=== PATIENT | female | born 1965 | race Caucasian/White ===

== ENCOUNTER → 2020-12-13 | Outpatient (CLI) | payer MEDICAID ==
[2020-12-13 15:32] VITALS: BP 130/85; PULSE 87; RESP 18; TEMP 98; BMI 40.9
[2020-12-13 16:40] LABS: HCT 39.9 % (34.0-46.0); HGB 13.4 gm/dL (11.4-16.0); MCH 29.5 pg (25.0-35.0); MCHC 33.6 g/dL (31.0-37.0); MCV 87.8 fL (80.0-100.0); Mean Platelet Volume 6.7; Platelet Count 355 k/uL (150-450); RBC 4.54 m/uL (3.80-5.40); RDW 13.7 % (11.5-15.5); WBC 8.4 k/uL (3.8-10.6)
[2020-12-14 06:51] LABS: Hemoglobin A1C 5.9 % (4.0-6.0)
[2020-12-14 19:32] LABS: African American GFR (CKD) 97.6 (60.0-200.0); Albumin 4.9 g/dL (3.80-4.90); Albumin/Globulin Ratio 2.13 (1.60-3.17); Anion Gap 17.3 mmol/L (4.00-12.00); BUN/Creat Ratio 23.75 Ratio (12.00-20.00); Calcium 10.2 mg/dL (8.7-10.3); Carbon Dioxide 19.7 mmol/L (21.6-31.8); Globulin 2.3 g/dL (1.6-3.3); Non-African American GFR(CKD) 84.2 (60.0-200.0); Potassium 4.5 mmol/L (3.5-5.5); Total Bilirubin 0.5 mg/dL (0.2-1.2); Total Protein 7.2 g/dL (6.2-8.2)
[2020-12-14 19:52] LABS: Folate, Serum 16.8 ng/mL
--- NOTE | 2020-12-28 10:47 | P.HPBAR ---
Bariatric H&P - History & Physicial H&P Date: 12/13/20 History & Physicial: Visit/CC: initial visit Patient initial contact: Initial weight: Initial weight in pounds: Height: 5 ft 7.5 in Initial BMI: Last weight: Current weight: 120.429 kg Current weight in pounds: 265.50 Current BMI: 40.9 [place] body weight (based on NIH guidelines): 62.369 kg Excess body weight loss: The patient is a 55 year-old F who presents for Bariatric Assessment. Patient presents today for presurgical consultation. She is morbidly obese. Her BMI is 41. She is requesting sleeve gastrectomy. Past Medical History Past Medical History: Atrial Fibrillation, Sleep Apnea/CPAP/BIPAP, Thyroid Disorder Additional Past Medical History / Comment(s): pneumonia 12/2017. History of Any Multi-Drug Resistant Organisms: MRSA Year Discovered:: 2018 MDRO Source:: nasal swab Past Surgical History: Ablation, Joint Replacement, Uterine Ablation Additional Past Surgical History / Comment(s): ablation for afib 2014. thyroid removed 11/2019. left hip replacement sx 01/2017. right hip replacement sx 07/2017. right hip replacement sx 12/2018. Past Anesthesia/Blood Transfusion Reactions: No Reported Reaction Past Psychological History: Depression Smoking Status: Never smoker Past Alcohol Use History: None Reported Past Drug Use History: None Reported Surgical - Exam Vital Signs Temp Pulse Resp BP 98 F 87 18 130/85 12/13/20 15:16 12/13/20 15:16 12/13/20 15:16 12/13/20 15:16 - General well developed, well nourished, no distress - Eyes PERRL - ENT normal pinna - Neck no masses - Respiratory normal expansion - Cardiovascular Rhythm: regular - Abdomen Abdomen: soft, non tender Results - Labs 12/13/20 16:03 12/13/20 16:03 Bariatric Assessment & Plan Plan: Morbid obesity. Patient was scheduled for EGD. She has an excellent understanding of sleeve gastrectomy. The risks and benefits of surgery discussed. Bariatric Checklist Checklist: Plan: Checklist: EGD: 1. Hiatal hernia: 2. H. Pylori: HgbA1c: Vitamin D: Smoking: Primary care physician referral: VICTORIA Day ([place]) Psychiatry clearance: Cardiology clearance: Sleep study: Diet journal: VTE risk score: VTE risk level: Rehab needs at discharge:
== END ==
LOC: BARWHC3 14:49
PROVIDERS: ATTEND Surgery
DX: E66.01 Morbid (severe) obesity due to excess calories (principal); Z68.41 Body mass index [BMI] 40.0-44.9, adult; I48.91 Unspecified atrial fibrillation; F32.9 Major depressive disorder, single episode, unspecified; Z91.040 Latex allergy status; Z91.048 Other nonmedicinal substance allergy status
CPT/HCPCS: 36415; 80053; 82306; 82607; 82746; 83036; 84425; 85027; 93005; 99203

== ENCOUNTER 2021-07-11 06:41 | Inpatient (IN) | payer MEDICAID ==
[~2021-07-11 06:41] MED LIST: DEXAMETHASONE SOD PHOSPHATE 4 MG/ML 1 ML VIAL IV ONE; ENOXAPARIN 40 MG/0.4 ML SYRINGE SQ PRN; MIDAZOLAM 2 MG/2 ML VIAL IV PRN; ONDANSETRON 4 MG/2 ML VIAL IVP ONE; SCOPOLAMINE 1 MG/72 HR PATCH TRANSDERM ONE
[2021-07-11] MEDS ORDERED: HYDROmorphone 0.5 MG/0.5 ML SYRINGE IVP PRN (07:00)
[2021-07-11] MEDS: LACTATED RINGERS 1,000 ML IV SCH (07:05)
[2021-07-11] MEDS ORDERED: LIDOCAINE 1% (10MG/ML) FOR IV START INTRADERMA ONE (07:34)
[2021-07-11] MEDS ORDERED: ROCURONIUM 10 MG/ML (5 ML VIAL) IV ONE (07:54)
[2021-07-11] MEDS ORDERED: diphenhydrAMINE 50 MG/ML 1 ML VIAL ONE (07:54)
[2021-07-11] MEDS ORDERED: ePHEDrine 50 MG/ML 1 ML VIAL ONE (07:54)
[2021-07-11] MEDS ORDERED: HYDROmorphone (PF) 1 MG/ML ONE (07:54)
[2021-07-11] MEDS ORDERED: PROPOFOL 10 MG/ML 20 ML VIAL IV ONE (07:54)
[2021-07-11] MEDS ORDERED: MIDAZOLAM 2 MG/2 ML VIAL ONE (07:54)
[2021-07-11] MEDS ORDERED: fentaNYL (PF) 50 MCG/ML 2 ML AMP ONE (07:54)
[2021-07-11] MEDS ORDERED: GLYCOPYRROLATE 0.2 MG/ML 2 ML VIAL ONE (07:54)
[2021-07-11] MEDS ORDERED: LIDOCAINE 1% INJ 10MG/ML (20 ML MDV) ONE (07:54)
[2021-07-11] MEDS ORDERED: SUCCINYLCHOLINE CHLORIDE VIAL 200 MG/10 ML VIAL IV ONE (07:54)
[2021-07-11] MEDS ORDERED: KETOROLAC 15 MG/ML 1 ML VIAL ONE (07:54)
[2021-07-11] MEDS ORDERED: NEOSTIGMINE 1 MG/ML 10 ML VIAL ONE (07:54)
[2021-07-11] MEDS ORDERED: BUPIVACAIN-EPI 0.25%-1:200,000 30 ML VIAL SQ ONE (08:24)
[2021-07-11] MEDS ORDERED: diphenhydrAMINE 50 MG/ML 1 ML VIAL IVP PRN (09:25)
[2021-07-11] MEDS ORDERED: ONDANSETRON 4 MG/2 ML VIAL IVP PRN (09:25)
[2021-07-11] MEDS ORDERED: HYDROmorphone 1 MG/ML 1 ML SYRINGE IVP PRN (09:25)
[2021-07-11] MEDS ORDERED: NALOXONE 0.4 MG/ML 1 ML VIAL IV PRN (09:25)
--- NOTE | 2021-07-11 09:25 | P.GSHP ---
History of Present Illness H&P Date: 07/11/21 Chief Complaint: Morbid obesity, BMI 37 This is a 56-year-old female who presents today for laparoscopic sleeve gastrectomy. Patient has had lifetime proximal piece. She has several convert is related to morbid obesity. Patient was sent the risks and benefits position. She is aware of the risk of gastric staple line disruption, bleeding and scarring. Past Medical History Past Medical History: Atrial Fibrillation, Osteoarthritis (OA), Sleep Apnea/CPAP/BIPAP, Syncope, Thyroid Disorder Additional Past Medical History / Comment(s): pneumonia 12/2017. , episode of passing out in Jan.-had echo, cardiac testing-all wnl per pt, card. thinks probably vasovagal, uses CPAP History of Any Multi-Drug Resistant Organisms: None Reported Date of last positivie culture/infection: 2017 MDRO Source:: nasal swab Past Surgical History: Cardiac Ablation, Joint Replacement, Uterine Ablation Additional Past Surgical History / Comment(s): ablation for afib 2014. thyroid removed 11/2019. left hip replacement sx 01/2017. right hip replacement sx 07/2017. right hip replacement sx 12/2018. Past Anesthesia/Blood Transfusion Reactions: No Reported Reaction Smoking Status: Never smoker Medications and Allergies Home Medications Medication Instructions Recorded Confirmed Type Cholecalciferol (Vitamin D3) 250 mcg PO DAILY 12/13/20 07/11/21 History [Vitamin D3 (125 MCG = 5,000 IU)] Desvenlafaxine Succinate [Pristiq] 50 mg PO DAILY 12/13/20 07/11/21 History Levothyroxine Sodium [Synthroid] 100 mcg PO DAILY 12/13/20 07/11/21 History Allergies Allergy/AdvReac Type Severity Reaction Status Date / Time adhesive tape Allergy Rash/Hives Verified 07/11/21 07:07 latex Allergy Rash/Hives Verified 07/11/21 07:07 steri strips Allergy Rash/Hives Uncoded 07/11/21 07:07 Surgical - Exam Vital Signs Temp Pulse Resp BP Pulse Ox 98.0 F 93 18 115/74 96 07/11/21 07:09 07/11/21 07:09 07/11/21 07:09 07/11/21 07:09 07/11/21 07:09 - General well developed, well nourished, no distress - Eyes PERRL - ENT normal pinna - Neck no masses - Respiratory normal expansion - Cardiovascular Rhythm: regular - Abdomen Abdomen: soft, non tender Assessment and Plan Assessment: Morbid obesity. We'll perform laparoscopic sleeve gastrectomy.
--- NOTE | 2021-07-11 09:26 | P.OP ---
Date of Procedure: 07/11/21 Preoperative Diagnosis: Morbid obesity, BMI 37 Postoperative Diagnosis: Morbid obesity Procedure(s) Performed: Laparoscopic sleeve gastrectomy Anesthesia: LILIANA Surgeon: Rodrigo Loaiza Estimated Blood Loss (ml): 5 Pathology: other (Stomach) Condition: stable Disposition: PACU Description of Procedure: The patient was placed on the operating room table in the supine position. She received general anesthesia and then was placed in dorsal lithotomy position. Her abdomen was prepped and draped in sterile fashion. The skin incision sites were anesthetized 1% local Xylocaine. And then the skin was incised with an 11 blade in the left lateral position. Using a blade less trocar under direct visualization the peritoneal cavity was entered. The abdomen was insufflated and then a 5 mm laparoscope was placed into the peritoneal cavity. A 5 mm trocar was placed in the right epigastric, and right lateral position. A 15 mm trocar was placed in the supra-umbilical position and another 5 mm trocar was placed in the left lateral position. The left lateral lobe of the liver was retracted. The stomach was visualized. The greater curvature of the stomach was then dissected using the Harmonic scissors. The dissection occurred approximately 5 cm from the pylorus to the level of the left zach. There was no hiatal hernia seen. At this point a 40-Kos[place] bougie dilator was placed the oropharynx and passed into the esophagus and into the stomach by the [employer]. The sleeve gastrectomy was performed by using the powered echelon stapler with a seam guard buttress material. Sequential firings of the stapler were performed. The gastric remnant was then brought out through the 15 mm trocar site. The dilator was withdrawn. And a orogastric tube was replaced into the stomach. The stomach was insufflated with 200 mL of methylene blue normal saline. There was no evidence of extravasation. The abdomen was irrigated there is no bleeding seen. The El-Dwight device was used to close the 15 mm trocar with 0 Vicryl. Skin was closed with interrupted 3-0 Monocryl sutures once the trochars withdrawn. Dermabond dressing was applied. Patient was sent to recovery in stable condition.
[2021-07-11] MEDS: KETOROLAC 15 MG/ML 1 ML VIAL IVP SCH ×3 (16:31→23:52)
[2021-07-11] MEDS: 0.9% NACL WITH KCL 20 MEQ/L 1,000 ML IV SCH ×2 (16:41→23:52)
--- NOTE | 2021-07-11 17:02 | CONS ---
CONSULTATION DATE OF SERVICE: 07/11/2021 REASON FOR CONSULTATION: Advice regarding atrial fibrillation and other medical issues, requested by Dr. Loaiza. HISTORY OF PRESENT ILLNESS: This 56-year-old woman with a past medical history of atrial fibrillation, DJD, and multiple medical problems, was admitted after laparoscopic sleeve gastrectomy by Dr. Loaiza. There is no history of any chest pain, palpitations, headache, loss of consciousness or seizures. PAST MEDICAL HISTORY: Atrial fibrillation, sleep apnea. MEDICATIONS: Home medications are reviewed and include Synthroid 100 mcg p.o. daily. ALLERGIES: ALLERGIES include ADHESIVE TAPE. FAMILY HISTORY: No history of heart disease or strokes in the family. SOCIAL HISTORY: No history of smoking. REVIEW OF SYSTEMS: Fourteen-point review of systems negative except as mentioned earlier. PHYSICAL EXAMINATION: Pulse 83, blood pressure 120/70, respiration 16. CHEST: Clear to auscultation. CARDIOVASCULAR: S1, S2 muffled. ABDOMEN: Soft. Status post surgery. LEGS: No edema. No swelling. NERVOUS SYSTEM: No focal deficit. SKIN: No ulcer, rash, bleeding. NECK: No jugular venous distention. NECK is no jugular venous distention. LAB INVESTIGATIONS: Not available. ASSESSMENT: 1. Status post laparoscopic sleeve gastrectomy. 2. Atrial fibrillation. 3. Degenerative joint disease. 4. History of sleep apnea. RECOMMENDATIONS AND DISCUSSION: In this 56-year-old woman who presented after surgery, at this time I recommend to continue current medications, continue symptomatic treatment. I recommend remote telemetry for the next 24 hours. Otherwise, resume the home medications. Will follow the patient closely with you. Thank you, Dr. Loaiza, for letting us participate in the care of this patient. MMODL / IJN: [id number] /
[2021-07-11] MEDS: HYOSCYAMINE ORAL DROPS 1.875 MG/15 ML BOTTLE PO PRN (19:43)
[2021-07-11] MEDS: ALBUTEROL NEBULIZED 2.5 MG/3 ML INHALATION SCH ×2 (20:12→21:45)
[2021-07-11] MEDS ORDERED: ACETAMINOPHEN IV (For NPO) 1,000 MG in EMPTY BAG 1 BAG IVPB ONE (21:25)
[2021-07-12] MEDS: HYOSCYAMINE ORAL DROPS 1.875 MG/15 ML BOTTLE PO PRN (04:03)
[2021-07-12] MEDS: KETOROLAC 15 MG/ML 1 ML VIAL IVP SCH ×2 (05:17→11:41)
[2021-07-12] MEDS ORDERED: LEVOTHYROXINE 100 MCG TAB PO SCH (06:30)
[2021-07-12] MEDS ORDERED: ENOXAPARIN 40 MG/0.4 ML SYRINGE SQ SCH (07:00)
[2021-07-12] MEDS: LACTATED RINGERS 1,000 ML IV SCH (07:07)
[2021-07-12 07:14] VITALS: RESP 19
[2021-07-12] MEDS: 0.9% NACL WITH KCL 20 MEQ/L 1,000 ML IV SCH (07:31)
[2021-07-12] MEDS ORDERED: 1: THIAMINE 100 MG, FOLIC ACID 1 MG in 0.9% NACL WITH KCL 20 MEQ/L 1,000 ML 2: 0.9% NAC IVPB SCH (08:00)
[2021-07-12] MEDS ORDERED: PANTOPRAZOLE 40 MG/10 ML VIAL IV SCH (09:00)
[2021-07-12] MEDS ORDERED: DESVENLAFAXINE SUCCINATE 50 MG TAB.ER.24H PO SCH (09:00)
[2021-07-12] MEDS ORDERED: MULTIVITAMINS, THERA LIQUID 237 ML BOTTLE PO SCH (09:00)
[2021-07-12 09:11] LABS: Basophils # (A) 0.02 X 10*3/uL (0.00-0.10); Basophils % (A) 0.2 %; Eosinophils # (A) 0.02 X 10*3/uL (0.04-0.35); Eosinophils % (A) 0.2 %; HCT 36.8 % (37.2-46.3); HGB 11.6 g/dL (12.0-15.0); Immature Grans, Automated 0.3 %; Lymphocytes # (A) 1.95 X 10*3/uL (0.90-5.00); Lymphocytes % (A) 19.1 %; MCH 28.3 pg (27.0-32.0); MCHC 31.5 g/dL (32.0-37.0); MCV 89.8 fL (80.0-97.0); Mean Platelet Volume 9.5 fL (9.5-12.2); Monocytes # (A) 0.77 X 10*3/uL (0.20-1.00); Monocytes % (A) 7.5 %; NRBC Per 100 WBC 0 /100 WBCS (0.0-0.0); Neutrophils # (A) 7.41 X 10*3/uL (1.80-7.70); Neutrophils % (A) 72.7 %; Platelet Count 370 X 10*3/uL (140-440); RDW 13.6 % (11.5-14.5)
[2021-07-12] MEDS: ALBUTEROL NEBULIZED 2.5 MG/3 ML INHALATION SCH ×2 (09:17→11:55)
[2021-07-12 09:25] LABS: Magnesium 2.2 mg/dL (1.5-2.4)
[2021-07-12 09:32] LABS: African American GFR (CKD) 112.5 (60.0-200.0); Anion Gap 13.9 mmol/L (10.00-18.00); Blood Urea Nitrogen 10.7 mg/dL (9.0-27.0); Calcium 8.6 mg/dL (8.7-10.3); Carbon Dioxide 20.6 mmol/L (20.0-27.5); Non-African American GFR(CKD) 97.1 (60.0-200.0); Phosphorus 3.1 mg/dL (2.4-5.1); Potassium 4.3 mmol/L (3.5-5.5)
--- NOTE | 2021-07-12 10:38 | FL ---
SINGLE CONTRAST UPPER GI EXAMINATION: CLINICAL HISTORY: 56-year-old female postop bariatric surgery, sleep gastrectomy on 07/11/2021. TECHNIQUE: Single contrast exam performed with 40 ml Isovue-370 contrast. Total fluoroscopy time: 1 minute 14 seconds. Total images: 20. FINDINGS: The patient was hesitant to swallow the oral contrast but did so without difficulty. Esophageal peris talsis and motility are within normal limits. There is prompt passage of contrast across the GE junct ion but then delay in passage beyond the proximal stomach. The patient took only a total of 2 swallow s. A few episodes of mild gastroesophageal reflux is demonstrated. There are postsurgical changes of sleeve gastrectomy. Contrast has instantly makes its way to the distal stomach and into the duodenum. There is no extravasation of contrast to suggest leak. No postsurgical free air identified on either side. Loop recorder device noted. IMPRESSION: Status post sleeve gastrectomy. No evidence for leak. Mild relative obstruction at the sleeve likely from postsurgical edema.
[2021-07-12 12:24] VITALS: BMI 36.6
[2021-07-12 13:28] VITALS: BP 128/74; PULSE 82; TEMP 97.4
--- NOTE | 2021-07-12 15:06 | P.DS ---
Providers Date of admission: 07/11/21 06:41 Expected date of discharge: 07/12/21 Attending physician: Rodrigo Loaiza Consults: 07/11/21 09:25 Consult Physician Routine Consulting Provider: Irasema Aleman Consult Reason/Comments: Medical management Do you want consulting provider notified?: Yes Primary care physician: Physician Nonstaff Hospital Course: Discharge diagnosis 1. Morbid obesity status post laparoscopic sleeve gastrectomy Hospital course This is a 56-year-old female with history of morbid obesity. She is status post appendectomy scopic sleeve gastrectomy. She tolerated surgery well. Her pain is controlled. She is tolerating bariatric clear liquid diet. Her upper GI shows no evidence of leak. Mild relative obstruction at the sleeve likely from postsurgical edema. Patient reports that her pain is controlled. She denies any nausea. She has been up and ambulating. And is afebrile. She is tolerating her liquid diet. She is stable for discharge. Please refer to chart for any further details. Physician Network Liaison note has been reviewed by physician. Signing provider agrees with the documented findings, assessment, and plan of care. Patient Condition at Discharge: Stable Plan - Discharge Summary Discharge Rx Participant: Yes New Discharge Prescriptions: New Omeprazole [PriLOSEC] 40 mg PO DAILY #30 cap Ondansetron Odt [Zofran Odt] 4 mg PO Q8HR PRN #9 tab PRN Reason: Nausea HYDROcodone/APAP 5-325MG [[place] 5-325] 1 tab PO Q6HR PRN 2 Days #5 tab PRN Reason: Pain bisacodyL [Dulcolax] 5 mg PO DAILY PRN #10 tab PRN Reason: Constipation Simethicone 40 mg/0.6 ml Drops [Mylicon Drops] 40 mg PO HS PRN #30 ml PRN Reason: Gas Continue Levothyroxine Sodium [Synthroid] 100 mcg PO DAILY Desvenlafaxine Succinate [Pristiq] 50 mg PO DAILY Discontinued Cholecalciferol (Vitamin D3) [Vitamin D3 (125 MCG = 5,000 IU)] 250 mcg PO DAILY Discharge Medication List Desvenlafaxine Succinate [Pristiq] 50 mg PO DAILY 12/13/20 [History] Levothyroxine Sodium [Synthroid] 100 mcg PO DAILY 12/13/20 [History] HYDROcodone/APAP 5-325MG [[place] 5-325] 1 tab PO Q6HR PRN 2 Days #5 tab 07/12/21 [Rx] Omeprazole [PriLOSEC] 40 mg PO DAILY #30 cap 07/12/21 [Rx] Ondansetron Odt [Zofran Odt] 4 mg PO Q8HR PRN #9 tab 07/12/21 [Rx] Simethicone 40 mg/0.6 ml Drops [Mylicon Drops] 40 mg PO PCHS PRN #30 ml 07/12/21 [Rx] bisacodyL [Dulcolax] 5 mg PO DAILY PRN #10 tab 07/12/21 [Rx] Follow up [facility]ment(s[facility] [facility] [place] 1 Week Activity/Diet/Wound Care/Special Instructions: No driving while taking [place] No lifting over 10 pounds You may shower. No soaking or tub baths for 2 weeks Very light activity until you are reevaluated at your follow up appointment with your surgeon No straws or carbonated beverages Hold on taking all vitamins until seen by surgeon Discharge Disposition: HOME SELF-CARE
--- NOTE | 2021-07-12 16:36 | PN ---
PROGRESS NOTE DATE OF SERVICE: 07/12/2021 This 56-year-old woman who was admitted after laparoscopic sleeve gastrectomy is improving significantly. No chest pain. No palpitations. No fever. PHYSICAL EXAMINATION: Pulse is 82, blood pressure 124/74, respiration 19. CHEST: Clear to auscultation. CARDIOVASCULAR: S1, S2 muffled. ABDOMEN: Soft. Status post surgery. NERVOUS SYSTEM: No focal deficits. LABS: Reviewed. ASSESSMENT: 1. Status post laparoscopic sleeve gastrectomy. 2. Atrial fibrillation. 3. Degenerative joint disease. 4. History of sleep apnea. RECOMMENDATIONS AND DISCUSSION: I recommend to continue current medications, continue with the monitoring, symptomatic treatment. Incentive spirometry. DVT prophylaxis. Continue the home medications upon discharge. Follow with primary physician in one week. Rest of the recommendations and DVT prophylaxis per Surgery. MMODL / IJN: [id number] /
[2021-07-13] MEDS ORDERED: bisacodyL 5 MG TABLET.DR PO PRN (08:00)
== END 2021-07-12 16:11 | disposition home or self-care (01) | DRG 621 ==
LOC: 2ORMAIN 06:41 → 4SSUR 15:44
PROVIDERS: ADMIT Surgery; ATTEND Surgery
PROC: 0DB64Z3 Excision of Stomach, Percutaneous Endoscopic Approach, Vertical (ICD-10-PCS; principal; 2021-07-11 07:40)
DX: E66.01 Morbid (severe) obesity due to excess calories (principal); I48.91 Unspecified atrial fibrillation; G47.30 Sleep apnea, unspecified; M19.90 Unspecified osteoarthritis, unspecified site; Z68.37 Body mass index [BMI] 37.0-37.9, adult; Z79.890 Hormone replacement therapy; Z79.899 Other long term (current) drug therapy; Z90.49 Acquired absence of other specified parts of digestive tract; Z96.643 Presence of artificial hip joint, bilateral; Z91.048 Other nonmedicinal substance allergy status; Z91.040 Latex allergy status; Z87.01 Personal history of pneumonia (recurrent); Z86.79 Personal history of other diseases of the circulatory system
CPT/HCPCS: 74240; 80051; 81025; 82310; 82565; 83735; 84100; 84520; 85025; 88307; 94640

== ENCOUNTER → 2021-07-19 | Outpatient (CLI) | payer MEDICAID ==
[2021-07-19 13:27] VITALS: BMI 35.6
[2021-07-19 14:26] VITALS: BP 128/80; PULSE 78
== END ==
LOC: BARWHC3 11:13
PROVIDERS: ATTEND Surgery
DX: E66.01 Morbid (severe) obesity due to excess calories (principal); Z68.35 Body mass index [BMI] 35.0-35.9, adult; Z98.84 Bariatric surgery status
CPT/HCPCS: 97802; 99211

== ENCOUNTER 2021-07-24 15:08 | Emergency (ER) | payer MEDICAID ==
[2021-07-24 15:19] VITALS: BP 106/72; PULSE 95; RESP 18; TEMP 98.9
[2021-07-24 15:52] LABS: ALT 24 U/L (4-34); AST 32 U/L (14-36); African American GFR (CKD) >90 (>60 ml/min/1.73 sqM); Albumin 4.7 g/dL (3.5-5.0); Alkaline Phosphatase 112 U/L (38-126); Amylase 40 U/L (30-110); Anion Gap 13 mmol/L; Blood Urea Nitrogen 14 mg/dL (7-17); Calcium 9.4 mg/dL (8.4-10.2); Carbon Dioxide 19 mmol/L (22-30); Chloride 108 mmol/L (98-107); Glucose 94 mg/dL (74-99); Lipase 242 U/L (23-300); Non-African American GFR(CKD) 88 (>60 ml/min/1.73 sqM); Sodium 140 mmol/L (137-145); Total Bilirubin 0.8 mg/dL (0.2-1.3); Total Protein 7.6 g/dL (6.3-8.2)
[2021-07-24 16:09] LABS: Basophils % (A) 0 %; Eosinophils # (A) 0.2 k/uL (0-0.7); Eosinophils % (A) 2 %; HCT 43.3 % (34.0-46.0); HGB 14.3 gm/dL (11.4-16.0); Lymphocytes # (A) 0.7 k/uL (1.0-4.8); Lymphocytes % (A) 6 %; MCH 28.8 pg (25.0-35.0); MCV 87.5 fL (80.0-100.0); Mean Platelet Volume 6.9; Monocytes # (A) 0.3 k/uL (0-1.0); Monocytes % (A) 3 %; Neutrophils # (A) 9.4 k/uL (1.3-7.7); Neutrophils % (A) 89 %; Platelet Count 379 k/uL (150-450); RBC 4.95 m/uL (3.80-5.40); WBC 10.6 k/uL (3.8-10.6)
--- NOTE | 2021-07-24 16:29 | XR ---
EXAMINATION TYPE: XR KUB DATE OF EXAM: 07/24/2021 COMPARISON: NONE HISTORY: Diarrhea TECHNIQUE: 2 views FINDINGS: There is no sign of intestinal obstruction or pneumoperitoneum. Fecal pattern is normal. Th ere is bilateral hip prosthesis. There are no pathologic calcifications over the kidneys. IMPRESSION: Nonacute abdomen.
[2021-07-24] MEDS ORDERED: SODIUM CHLORIDE 0.9% 1,000 ML IV ONE ×2 (18:16→18:34)
--- NOTE | 2021-07-24 18:38 | ED ---
General Adult HPI - General Chief complaint: Nausea/Vomiting/Diarrhea Stated complaint: In Quicker,Diarrhea Time Seen by Provider: 07/24/21 18:16 Source: patient, RN notes reviewed, old records reviewed Mode of arrival: ambulatory Limitations: no limitations - History of Present Illness Initial comments: 56-year-old female who is 13 days status post gastric sleeve presenting for evaluation of watery diarrhea over the past 24 hours. Patient states this is very foul-smelling and consist predominantly of water. She has not been on any recent antibiotics. She denies significant abdominal pain. No vomiting. No fever. - Related Data Home Medications Medication Instructions Recorded Confirmed Desvenlafaxine Succinate [Pristiq] 50 mg PO DAILY 12/13/20 07/19/21 Levothyroxine Sodium [Synthroid] 100 mcg PO DAILY 12/13/20 07/19/21 Previous Rx's Medication Instructions Recorded HYDROcodone/APAP 5-325MG [[place] 1 tab PO Q6HR PRN 2 Days #5 tab 07/12/21 5-325] Omeprazole [PriLOSEC] 40 mg PO DAILY #30 cap 07/12/21 Ondansetron Odt [Zofran Odt] 4 mg PO Q8HR PRN #9 tab 07/12/21 Simethicone 40 mg/0.6 ml Drops 40 mg PO PCHS PRN #30 ml 07/12/21 [Mylicon Drops] bisacodyL [Dulcolax] 5 mg PO DAILY PRN #10 tab 07/12/21 Allergies Allergy/AdvReac Type Severity Reaction Status Date / Time adhesive tape Allergy Rash/Hives Verified 07/24/21 15:19 latex Allergy Rash/Hives Verified 07/24/21 15:19 steri strips Allergy Rash/Hives Uncoded 07/24/21 15:19 Review of Systems ROS Statement: Those systems with pertinent positive or pertinent negative responses have been documented in the HPI. ROS Other: All systems not noted in ROS Statement are negative. Past Medical History Past Medical History: Atrial Fibrillation, Osteoarthritis (OA), Sleep Apnea/CPAP/BIPAP, Syncope, Thyroid Disorder Additional Past Medical History / Comment(s): pneumonia 12/2017. , episode of passing out in Nov.-had echo, cardiac testing-all wnl per pt, card. thinks probably vasovagal, uses CPAP History of Any Multi-Drug Resistant Organisms: None Reported Date of last positivie culture/infection: 2017 MDRO Source:: nasal swab Past Surgical History: Bariatric Surgery, Cardiac Ablation, Joint Replacement, Uterine Ablation Additional Past Surgical History / Comment(s): ablation for afib 2014. thyroid removed 11/2019. left hip replacement sx 01/2017. right hip replacement sx 07/2017. right hip replacement sx 12/2018. Sleeve gastrectomy 07-11-21 Past Anesthesia/Blood Transfusion Reactions: No Reported Reaction Past Psychological History: Depression Smoking Status: Never smoker Past Alcohol Use History: None Reported Past Drug Use History: None Reported - Past Family History Mother Family Medical History: No Reported History General Exam Limitations: no limitations General appearance: alert, in no apparent distress Head exam: Present: atraumatic, normocephalic Eye exam: Present: normal appearance, PERRL ENT exam: Present: mucous membranes dry Neck exam: Present: normal inspection. Absent: tenderness, meningismus Respiratory exam: Present: normal lung sounds bilaterally. Absent: respiratory distress, wheezes Cardiovascular Exam: Present: regular rate, normal rhythm GI/Abdominal exam: Present: soft, other (Incisions are well-healed). Absent: distended, tenderness, guarding, rebound Extremities exam: Present: normal inspection, normal capillary refill. Absent: pedal edema, calf tenderness Neurological exam: Present: alert, oriented X3, CN II-XII intact. Absent: motor sensory deficit Psychiatric exam: Present: normal affect, normal mood Skin exam: Present: warm, dry, intact. Absent: cyanosis, diaphoretic Course Vital Signs 07/24/21 15:16 Temperature 98.9 F Pulse Rate 95 Respiratory 18 Rate Blood Pressure 106/72 O2 Sat by Pulse 98 Oximetry - Reevaluation(s) Reevaluation #1: 07/24/21 18:37 I discussed case with Dr. Loaiza who is familiar with the patient. He recommends 2 L of IV hydration and outpatient follow-up. Medical Decision Making - Medical Decision Making 56-year-old female with recent gastric sleeve presenting with diarrhea. This is been over the past 24 hours. Her did have a similar diarrheal illness. Her abdomen is soft. Vital signs are stable. She has a normal CBC, normal lites lites, normal kidney function, 3+ ketones in the urine suggestive of dehydration. Her C. difficile toxin is negative. She gets 2 L of fluid in the emergency department and is feeling better. She has follow-up with her general surgeon tomorrow. - Lab Data Result diagrams: 07/24/21 15:32 07/24/21 15:32 Lab Results 07/24/21 07/24/21 07/24/21 Range/Units 15:32 15:32 15:32 WBC 10.6 (3.8-10.6) k/uL RBC 4.95 (3.80-5.40) m/uL Hgb 14.3 (11.4-16.0) gm/dL Hct 43.3 (34.0-46.0) % MCV 87.5 (80.0-100.0) fL MCH 28.8 (25.0-35.0) pg MCHC 33.0 (31.0-37.0) g/dL RDW 14.0 (11.5-15.5) % Plt Count 379 (150-450) k/uL MPV 6.9 Neutrophils % 89 % Lymphocytes % 6 % Monocytes % 3 % Eosinophils % 2 % Basophils % 0 % Neutrophils # 9.4 H (1.3-7.7) k/uL Lymphocytes # 0.7 L (1.0-4.8) k/uL Monocytes # 0.3 (0-1.0) k/uL Eosinophils # 0.2 (0-0.7) k/uL Basophils # 0.0 (0-0.2) k/uL Sodium 140 (137-145) mmol/L Potassium 4.0 (3.5-5.1) mmol/L Chloride 108 H (98-107) mmol/L Carbon Dioxide 19 L (22-30) mmol/L Anion Gap 13 mmol/L BUN 14 (7-17) mg/dL Creatinine 0.77 (0.52-1.04) mg/dL Est GFR (CKD-EPI)AfAm >90 (>60 ml/min/1.73 sqM) Est GFR (CKD-EPI)NonAf 88 (>60 ml/min/1.73 sqM) Glucose 94 (74-99) mg/dL Plasma Lactic Acid Samuel 1.0 (0.7-2.0) mmol/L Calcium 9.4 (8.4-10.2) mg/dL Total Bilirubin 0.8 (0.2-1.3) mg/dL AST 32 (14-36) U/L ALT 24 (4-34) U/L Alkaline Phosphatase 112 (38-126) U/L Total Protein 7.6 (6.3-8.2) g/dL Albumin 4.7 (3.5-5.0) g/dL Amylase 40 (30-110) U/L Lipase 242 (23-300) U/L Urine Color Urine Appearance (Clear) Urine pH (5.0-8.0) Ur Specific [place] (1.001-1.035) Urine Protein (Negative) Urine Glucose (UA) (Negative) Urine Ketones (Negative) Urine Blood (Negative) Urine Nitrite (Negative) Urine Bilirubin (Negative) Urine Urobilinogen (<2.0) mg/dL Ur Leukocyte Esterase (Negative) Urine RBC (0-5) /hpf Urine WBC (0-5) /hpf Ur Squamous Epith Cells (0-4) /hpf Urine Bacteria (None) /hpf Urine Mucus (None) /hpf C. difficile (EIA) Intrp (Negative) 07/24/21 07/24/21 Range/Units 18:33 18:33 WBC (3.8-10.6) k/uL RBC (3.80-5.40) m/uL Hgb (11.4-16.0) gm/dL Hct (34.0-46.0) % MCV (80.0-100.0) fL MCH (25.0-35.0) pg MCHC (31.0-37.0) g/dL RDW (11.5-15.5) % Plt Count (150-450) k/uL MPV Neutrophils % % Lymphocytes % % Monocytes % % Eosinophils % % Basophils % % Neutrophils # (1.3-7.7) k/uL Lymphocytes # (1.0-4.8) k/uL Monocytes # (0-1.0) k/uL Eosinophils # (0-0.7) k/uL Basophils # (0-0.2) k/uL Sodium (137-145) mmol/L Potassium (3.5-5.1) mmol/L Chloride (98-107) mmol/L Carbon Dioxide (22-30) mmol/L Anion Gap mmol/L BUN (7-17) mg/dL Creatinine (0.52-1.04) mg/dL Est GFR (CKD-EPI)AfAm (>60 ml/min/1.73 sqM) Est GFR (CKD-EPI)NonAf (>60 ml/min/1.73 sqM) Glucose (74-99) mg/dL Plasma Lactic Acid Samuel (0.7-2.0) mmol/L Calcium (8.4-10.2) mg/dL Total Bilirubin (0.2-1.3) mg/dL AST (14-36) U/L ALT (4-34) U/L Alkaline Phosphatase (38-126) U/L Total Protein (6.3-8.2) g/dL Albumin (3.5-5.0) g/dL Amylase (30-110) U/L Lipase (23-300) U/L Urine Color Yellow Urine Appearance Clear (Clear) Urine pH 5.5 (5.0-8.0) Ur Specific [place] 1.029 (1.001-1.035) Urine Protein Trace H (Negative) Urine Glucose (UA) Negative (Negative) Urine Ketones 3+ H (Negative) Urine Blood Negative (Negative) Urine Nitrite Negative (Negative) Urine Bilirubin 1+ H (Negative) Urine Urobilinogen 2.0 (<2.0) mg/dL Ur Leukocyte Esterase Trace H (Negative) Urine RBC 1 (0-5) /hpf Urine WBC 2 (0-5) /hpf Ur Squamous Epith Cells 2 (0-4) /hpf Urine Bacteria Rare H (None) /hpf Urine Mucus Many H (None) /hpf C. difficile (EIA) Intrp Negative (Negative) Disposition Clinical Impression: Dehydration, Diarrhea Disposition: HOME SELF-CARE Condition: Good Instructions (If sedation given, give patient instructions): Acute Diarrhea (ED) Is patient prescribed a controlled substance at d/c from ED?: No Referrals: Nonstaff,Physician [Primary Care Provider] - 1-2 days Rodrigo Loaiza MD [STAFF PHYSICIAN] - 1-2 days Time of Disposition: 20:30
[2021-07-24 18:42] LABS: Appearance,Urine Clear (Clear); Bacteria,Urine Rare /hpf; Bilirubin,Urine 1+ (Negative); Blood,Urine Negative (Negative); Color,Urine Yellow; Glucose,Urine (UA) Negative (Negative); Ketones,Urine 3+ (Negative); Leukocyte Esterase,Urine Trace (Negative); Mucus,Urine Many /hpf; Nitrite,Urine Negative (Negative); PH, Urine 5.5 (5.0-8.0); Protein,Urine Trace (Negative); RBC,Urine 1 /hpf (0-5); Specific Gravity,Urine 1.029 (1.001-1.035); Squamous Epithelial Cell,Urine 2 /hpf (0-4); WBC,Urine 2 /hpf (0-5)
== END 2021-07-24 21:05 | disposition home or self-care (01) ==
LOC: EC 15:08
DX: R19.7 Diarrhea, unspecified (principal); E86.0 Dehydration; R82.4 Acetonuria; E07.9 Disorder of thyroid, unspecified; Z91.040 Latex allergy status; Z91.09 Other allergy status, other than to drugs and biological substances; Z79.890 Hormone replacement therapy
CPT/HCPCS: 36415; 74018; 80053; 81001; 82150; 83605; 83690; 85025; 87324; 96360; 99284

== ENCOUNTER → 2021-07-25 | Outpatient (CLI) | payer MEDICAID ==
[2021-07-25 13:58] VITALS: BP 117/75; PULSE 84; RESP 16; TEMP 97.8; BMI 35.6
--- NOTE | 2021-07-25 15:32 | P.HPBAR ---
Bariatric H&P - History & Physicial H&P Date: 07/25/21 History & Physicial: Visit/CC: sleeve f/u Patient initial contact: Initial weight: Initial weight in pounds: Height: 5 ft 7.5 in Initial BMI: Last weight: Current weight: 104.78 kg Current weight in pounds: 231.00 Current BMI: 35.6 [place] body weight (based on NIH guidelines): 62.369 kg Excess body weight loss: The patient is a 56 year-old F who presents for Bariatric Assessment. Patient presents today for sleeve gastrectomy follow-up. She's had some complaints of diarrhea. She was seen in the emergency room yesterday. She denies any GERD and dysphagia. He was given some Imodium in the emergency room. Past Medical History Past Medical History: Atrial Fibrillation, Osteoarthritis (OA), Sleep Apnea/CPAP/BIPAP, Syncope, Thyroid Disorder Additional Past Medical History / Comment(s): pneumonia 12/2017. , episode of passing out in Jan.-had echo, cardiac testing-all wnl per pt, card. thinks probably vasovagal, uses CPAP History of Any Multi-Drug Resistant Organisms: None Reported Year Discovered:: 2018 MDRO Source:: nasal swab Past Surgical History: Bariatric Surgery, Cardiac Ablation, Joint Replacement, Uterine Ablation Additional Past Surgical History / Comment(s): ablation for afib 2014. thyroid removed 11/2019. left hip replacement sx 01/2017. right hip replacement sx 07/2017. right hip replacement sx 12/2018. Sleeve gastrectomy 07-11-21 Past Anesthesia/Blood Transfusion Reactions: No Reported Reaction Past Psychological History: Depression Smoking Status: Never smoker Past Alcohol Use History: None Reported Past Drug Use History: None Reported - Past Family History Mother Family Medical History: No Reported History Surgical - Exam Vital Signs Temp Pulse Resp BP 97.8 F 84 16 117/75 07/25/21 13:55 07/25/21 13:55 07/25/21 13:55 07/25/21 13:55 - General well developed, well nourished, no distress - Eyes PERRL - ENT normal pinna - Neck no masses - Respiratory normal expansion - Cardiovascular Rhythm: regular - Abdomen Abdomen: soft, non tender Bariatric Assessment & Plan Plan: Patient's is doing well from her gastric sleeve. Her diarrhea is being observed. The patient's most likely has frequent balance due to her diet. She'll be observed in follow-up in 2 weeks. Bariatric Checklist Checklist: Plan: Checklist: EGD: 1. Hiatal hernia: 2. H. Pylori: HgbA1c: Vitamin D: Smoking: Primary care physician referral: VICTORIA Day) Psychiatry clearance: Cardiology clearance: Sleep study: Diet journal: VTE risk score: VTE risk level: Rehab needs at discharge:
== END ==
LOC: BARWHC3 13:28
PROVIDERS: ATTEND Surgery
DX: Z09 Encounter for follow-up examination after completed treatment for conditions other than malignant neoplasm (principal); R19.7 Diarrhea, unspecified; M19.90 Unspecified osteoarthritis, unspecified site; I48.91 Unspecified atrial fibrillation; F32.A Depression, unspecified; Z98.84 Bariatric surgery status; Z91.048 Other nonmedicinal substance allergy status; Z91.040 Latex allergy status
CPT/HCPCS: 99211

== ENCOUNTER → 2021-08-01 | Outpatient (CLI) | payer MEDICAID ==
[~2021-08-01] MED LIST changes: -DEXAMETHASONE SOD PHOSPHATE 4 MG/ML 1 ML VIAL IV ONE; -ENOXAPARIN 40 MG/0.4 ML SYRINGE SQ PRN; -MIDAZOLAM 2 MG/2 ML VIAL IV PRN; -ONDANSETRON 4 MG/2 ML VIAL IVP ONE; -SCOPOLAMINE 1 MG/72 HR PATCH TRANSDERM ONE; +SODIUM CHLORIDE 0.9% 1,000 ML IV ONE
[2021-08-01 13:36] VITALS: BP 124/84; PULSE 83; TEMP 97.5; BMI 34.5
--- NOTE | 2021-08-01 13:47 | P.HPBAR ---
Bariatric H&P - History & Physicial H&P Date: 08/01/21 History & Physicial: Visit/CC: sleeve f/u Patient initial contact: Initial weight: Initial weight in pounds: Height: 5 ft 7.5 in Initial BMI: Last weight: Current weight: 101.605 kg Current weight in pounds: 224.00 Current BMI: 34.5 [place] body weight (based on NIH guidelines): 62.369 kg Excess body weight loss: The patient is a 56 year-old F who presents for Bariatric Assessment.patient presents today for bariatric follow-up. She's had some complaints of diarrhea.She's also had trouble with water intake. Past Medical History Past Medical History: Atrial Fibrillation, Osteoarthritis (OA), Sleep Apnea/CPAP/BIPAP, Syncope, Thyroid Disorder Additional Past Medical History / Comment(s): pneumonia 12/2017. , episode of passing out in Jan.-had echo, cardiac testing-all wnl per pt, card. thinks probably vasovagal, uses CPAP History of Any Multi-Drug Resistant Organisms: None Reported Year Discovered:: 2018 MDRO Source:: nasal swab Past Surgical History: Bariatric Surgery, Cardiac Ablation, Joint Replacement, Uterine Ablation Additional Past Surgical History / Comment(s): ablation for afib 2014. thyroid removed 11/2019. left hip replacement sx 01/2017. right hip replacement sx 07/2017. right hip replacement sx 12/2018. Sleeve gastrectomy 07-11-21 Past Anesthesia/Blood Transfusion Reactions: No Reported Reaction Smoking Status: Never smoker - Past Family History Mother Family Medical History: No Reported History Surgical - Exam Vital Signs Temp Pulse BP 97.5 F L 83 124/84 08/01/21 13:34 08/01/21 13:34 08/01/21 13:34 - General well developed, well nourished, no distress - Eyes PERRL - ENT normal pinna - Neck no masses - Respiratory normal expansion - Cardiovascular Rhythm: regular - Abdomen Abdomen: soft, non tender Bariatric Assessment & Plan Plan: status post sleeve gastrectomy. Patient has some mild dehydration. She will receive IV infusion therapy. She'll follow-up in one week. Bariatric Checklist Checklist: Plan: Checklist: EGD: 1. Hiatal hernia: 2. H. Pylori: HgbA1c: Vitamin D: Smoking: Primary care physician referral: VICTORIA Day ([facility]) Psychiatry clearance: Cardiology clearance: Sleep study: Diet journal: VTE risk score: VTE risk level: Rehab needs at discharge:
[2021-08-01 14:00] VITALS: RESP 16
== END ==
LOC: BARWHC3 13:22
PROVIDERS: ATTEND Surgery
DX: E86.0 Dehydration (principal); Z91.040 Latex allergy status; Z91.048 Other nonmedicinal substance allergy status
CPT/HCPCS: 96360; 97803; 99211

== ENCOUNTER → 2021-09-05 | Outpatient (CLI) | payer MEDICAID ==
[2021-09-05 15:25] VITALS: BP 133/85; PULSE 80; RESP 16; TEMP 97.6; BMI 33.0
--- NOTE | 2021-09-05 16:00 | P.HPBAR ---
Bariatric H&P - History & Physicial H&P Date: 09/05/21 History & Physicial: Visit/CC: f/u Patient initial contact: Initial weight: 120.344 kg Initial weight in pounds: 265.31 Height: 5 ft 7.5 in Initial BMI: 40.9 Last weight: Current weight: 97.069 kg Current weight in pounds: 214.00 Current BMI: 33.0 [place] body weight (based on NIH guidelines): 62.369 kg Excess body weight loss: 40.1% The patient is a 56 year-old F who presents for Bariatric Assessment. Patient presents today for bariatric follow-up. She has some complaints of GERD. She is otherwise doing well. Past Medical History Past Medical History: Atrial Fibrillation, Osteoarthritis (OA), Sleep Apnea/CPAP/BIPAP, Syncope, Thyroid Disorder Additional Past Medical History / Comment(s): pneumonia 12/2017. , episode of passing out in Jan.-had echo, cardiac testing-all wnl per pt, card. thinks probably vasovagal, uses CPAP History of Any Multi-Drug Resistant Organisms: None Reported Year Discovered:: 2018 MDRO Source:: nasal swab Past Surgical History: Bariatric Surgery, Cardiac Ablation, Joint Replacement, Uterine Ablation Additional Past Surgical History / Comment(s): ablation for afib 2014. thyroid removed 11/2019. left hip replacement sx 01/2017. right hip replacement sx 07/2017. right hip replacement sx 12/2018. Sleeve gastrectomy 07-11-21 Past Anesthesia/Blood Transfusion Reactions: No Reported Reaction Past Psychological History: Depression Smoking Status: Never smoker Past Alcohol Use History: None Reported Past Drug Use History: None Reported - Past Family History Mother Family Medical History: No Reported History Surgical - Exam Vital Signs Temp Pulse Resp BP 97.6 F 80 16 133/85 09/05/21 15:23 09/05/21 15:23 09/05/21 15:23 09/05/21 15:23 - General well developed, well nourished, no distress - Eyes PERRL - ENT normal pinna - Neck no masses, no bruits - Respiratory normal expansion - Cardiovascular Rhythm: regular - Abdomen Abdomen: soft, non tender Bariatric Assessment & Plan Plan: Status post sleeve history. Patient doing quite well. Her GERD is minimal observe her to follow-up in 4 weeks. Bariatric Checklist Checklist: Plan: Checklist: EGD: 1. Hiatal hernia: 2. H. Pylori: HgbA1c: Vitamin D: Smoking: Primary care physician referral: TADEO SAMPSON Psychiatry clearance: Cardiology clearance: Sleep study: Diet journal: VTE risk score: VTE risk level: Rehab needs at discharge:
== END ==
LOC: BARWHC3 13:55
PROVIDERS: ATTEND Surgery
DX: Z09 Encounter for follow-up examination after completed treatment for conditions other than malignant neoplasm (principal); K21.9 Gastro-esophageal reflux disease without esophagitis; I48.91 Unspecified atrial fibrillation; M19.90 Unspecified osteoarthritis, unspecified site; Z98.84 Bariatric surgery status; F32.A Depression, unspecified; Z91.040 Latex allergy status; Z91.048 Other nonmedicinal substance allergy status
CPT/HCPCS: 97803; 99211

== ENCOUNTER → 2021-10-31 | Outpatient (CLI) | payer MEDICAID ==
[2021-10-31 13:56] VITALS: BP 125/81; PULSE 80; TEMP 98.7; BMI 31.4
--- NOTE | 2021-10-31 14:44 | P.HPBAR ---
Bariatric H&P - History & Physicial H&P Date: 10/31/21 History & Physicial: Visit/CC: sleeve f/u Patient initial contact: Initial weight: 120.344 kg Initial weight in pounds: 265.31 Height: 5 ft 7.5 in Initial BMI: 40.9 Last weight: Current weight: 92.533 kg Current weight in pounds: 204.00 Current BMI: 31.4 [place] body weight (based on NIH guidelines): 62.369 kg Excess body weight loss: 47.9% The patient is a 56 year-old F who presents for Bariatric patient resents today for bariatric follow-up. She is doing quite well proceeded excellent weight loss. She's had some mild GERD. Past Medical History Past Medical History: Atrial Fibrillation, Osteoarthritis (OA), Sleep Apnea/CPAP/BIPAP, Syncope, Thyroid Disorder Additional Past Medical History / Comment(s): pneumonia 12/2017. , episode of passing out in Jan.-had echo, cardiac testing-all wnl per pt, card. thinks probably vasovagal, uses CPAP History of Any Multi-Drug Resistant Organisms: None Reported Year Discovered:: 2018 MDRO Source:: nasal swab Past Surgical History: Bariatric Surgery, Cardiac Ablation, Joint Replacement, Uterine Ablation Additional Past Surgical History / Comment(s): ablation for afib 2014. thyroid removed 11/2019. left hip replacement sx 01/2017. right hip replacement sx 07/2017. right hip replacement sx 12/2018. Sleeve gastrectomy 07-11-21 Past Anesthesia/Blood Transfusion Reactions: No Reported Reaction Past Psychological History: Depression Smoking Status: Never smoker Past Alcohol Use History: None Reported Past Drug Use History: None Reported - Past Family History Mother Family Medical History: No Reported History Surgical - Exam Vital Signs Temp Pulse BP 98.7 F 80 125/81 10/31/21 13:51 10/31/21 13:51 10/31/21 13:51 - General well developed, well nourished, no distress - Eyes PERRL - ENT normal pinna - Neck no masses - Respiratory normal expansion - Cardiovascular Rhythm: regular - Abdomen Abdomen: soft, non tender Bariatric Assessment & Plan Plan: Status post sleeve gastrectomy. Patient's GERD is minimal will be observed. She'll follow-up in 4 weeks. Bariatric Checklist Checklist: Plan: Checklist: EGD: 1. Hiatal hernia: 2. H. Pylori: HgbA1c: Vitamin D: Smoking: Primary care physician referral: TADEO Mcqueen clearance: Cardiology clearance: Sleep study: Diet journal: VTE risk score: VTE risk level: Rehab needs at discharge:
[2021-10-31 22:37] LABS: HGB 12.8 g/dL (12.0-15.0); MCH 27.7 pg (27.0-32.0); MCHC 31.2 g/dL (32.0-37.0); MCV 88.7 fL (80.0-97.0); NRBC Per 100 WBC 0 /100 WBCS (0.0-0.0); Platelet Count 345 X 10*3/uL (140-440); RBC 4.62 X 10*6/uL (4.10-5.20); RDW 14.2 % (11.5-14.5); WBC 7.46 X 10*3/uL (4.50-10.00)
[2021-10-31 23:27] LABS: % Iron Saturation 12.3 (12.00-45.00); African American GFR (CKD) 116.1 (60.0-200.0); Albumin 4.7 g/dL (3.8-4.9); Albumin/Globulin Ratio 1.8 (1.60-3.17); Anion Gap 14.6 mmol/L (10.00-18.00); BUN/Creat Ratio 29.29 Ratio (12.00-20.00); Blood Urea Nitrogen 19.3 mg/dL (9.0-27.0); Calcium 9.8 mg/dL (8.7-10.3); Carbon Dioxide 24.2 mmol/L (20.0-27.5); Globulin 2.6 g/dL (1.6-3.3); Magnesium 2.3 mg/dL (1.5-2.4); Non-African American GFR(CKD) 100.2 (60.0-200.0); Total Bilirubin 0.4 mg/dL (0.30-1.20); Total Protein 7.3 g/dL (6.2-8.2)
[2021-11-01 11:43] LABS: Zinc, Serum 82 ug/dL (60-130)
[2021-11-02 09:12] LABS: Vitamin A 65 ug/dL (38-106)
[2021-11-02 09:24] LABS: Vit B1(Thiamine) 104 ug/L (38-122)
== END ==
LOC: BARWHC3 13:27
PROVIDERS: ATTEND Surgery
DX: Z09 Encounter for follow-up examination after completed treatment for conditions other than malignant neoplasm (principal); D50.8 Other iron deficiency anemias; Z98.84 Bariatric surgery status; E44.0 Moderate protein-calorie malnutrition; T56.894A Toxic effect of other metals, undetermined, initial encounter; I48.91 Unspecified atrial fibrillation; E55.9 Vitamin D deficiency, unspecified; M19.90 Unspecified osteoarthritis, unspecified site; F32.A Depression, unspecified; K21.9 Gastro-esophageal reflux disease without esophagitis; Z91.048 Other nonmedicinal substance allergy status; Z91.040 Latex allergy status
CPT/HCPCS: 80053; 82306; 82607; 82728; 82746; 83540; 83550; 83735; 84255; 84425; 84443; 84590; 84630; 85027; 99211

== ENCOUNTER → 2022-01-02 | Outpatient (CLI) | payer MEDICAID ==
[2022-01-02 13:42] VITALS: BP 108/74; PULSE 84; TEMP 96.8; BMI 29.5
--- NOTE | 2022-01-02 14:56 | P.HPBAR ---
Bariatric H&P - History & Physicial H&P Date: 01/02/22 History & Physicial: Visit/CC: 6 month sleeve f/u Patient initial contact: Initial weight: 120.344 kg Initial weight in pounds: 265.31 Height: 5 ft 7.5 in Initial BMI: 40.9 Last weight: Current weight: 86.636 kg Current weight in pounds: 191.00 Current BMI: 29.5 [place] body weight (based on NIH guidelines): 62.369 kg Excess body weight loss: 58.1% The patient is a 56 year-old F who presents for Bariatric Assessment. Patient presents today for Lr fall. She's had excellent weight loss. She has some complaints of GERD. Past Medical History Past Medical History: Atrial Fibrillation, Osteoarthritis (OA), Sleep Apnea/CPAP/BIPAP, Syncope, Thyroid Disorder Additional Past Medical History / Comment(s): pneumonia 12/2017. , episode of passing out in Jan.-had echo, cardiac testing-all wnl per pt, card. thinks probably vasovagal, uses CPAP History of Any Multi-Drug Resistant Organisms: None Reported Year Discovered:: 2018 MDRO Source:: nasal swab Past Surgical History: Bariatric Surgery, Cardiac Ablation, Joint Replacement, Uterine Ablation Additional Past Surgical History / Comment(s): ablation for afib 2014. thyroid removed 11/2019. left hip replacement sx 01/2017. right hip replacement sx 07/2017. right hip replacement sx 12/2018. Sleeve gastrectomy 07-11-21 Past Anesthesia/Blood Transfusion Reactions: No Reported Reaction Past Psychological History: Depression Smoking Status: Never smoker Past Alcohol Use History: None Reported Past Drug Use History: None Reported - Past Family History Mother Family Medical History: No Reported History Surgical - Exam Vital Signs Temp Pulse BP 96.8 F L 84 108/74 01/02/22 13:38 01/02/22 13:38 01/02/22 13:38 - General well developed, well nourished, no distress - Eyes PERRL - ENT normal pinna - Neck no masses - Respiratory normal expansion - Abdomen Abdomen: soft, non tender Bariatric Assessment & Plan Plan: Status post sleeve gastrectomy. Patient's GERD is minimal and will be observed. She'll follow-up in 4 weeks. Bariatric Checklist Checklist: Plan: Checklist: EGD: 1. Hiatal hernia: 2. H. Pylori: HgbA1c: Vitamin D: Smoking: Primary care physician referral: TADEO SAMPSON Psychiatry clearance: Cardiology clearance: Sleep study: Diet journal: VTE risk score: VTE risk level: Rehab needs at discharge:
[2022-01-02 17:55] LABS: HCT 42.7 % (37.2-46.3); HGB 13.6 g/dL (12.0-15.0); MCH 29.2 pg (27.0-32.0); MCHC 31.9 g/dL (32.0-37.0); MCV 91.6 fL (80.0-97.0); Mean Platelet Volume 9.5 fL (9.5-12.2); NRBC Per 100 WBC 0 /100 WBCS (0.0-0.0); Platelet Count 346 X 10*3/uL (140-440); RBC 4.66 X 10*6/uL (4.10-5.20); RDW 13.2 % (11.5-14.5); WBC 8.32 X 10*3/uL (4.50-10.00)
[2022-01-02 18:36] LABS: % Iron Saturation 15.85 (12.00-45.00)
[2022-01-02 18:37] LABS: Magnesium 2.3 mg/dL (1.5-2.4)
[2022-01-04 09:47] LABS: Vit B1(Thiamine) 94 ug/L (38-122)
== END | disposition home or self-care (01) ==
LOC: BARWHC3 13:05
PROVIDERS: ATTEND Surgery
DX: E66.01 Morbid (severe) obesity due to excess calories (principal); D50.8 Other iron deficiency anemias; E44.0 Moderate protein-calorie malnutrition; E55.9 Vitamin D deficiency, unspecified; T56.894A Toxic effect of other metals, undetermined, initial encounter
CPT/HCPCS: 82306; 82607; 82728; 82746; 83540; 83550; 83735; 84255; 84425; 84443; 84590; 85027; 97803; 99211

== ENCOUNTER → 2022-04-24 | Outpatient (CLI) | payer MEDICAID ==
[2022-04-24 15:29] VITALS: BMI 28.1
[2022-04-24 15:56] VITALS: BP 122/82; PULSE 87; TEMP 98
[2022-04-25 10:10] LABS: HGB 13.1 g/dL (12.0-15.0); MCH 28.8 pg (27.0-32.0); MCHC 31.2 g/dL (32.0-37.0); MCV 92.3 fL (80.0-97.0); Mean Platelet Volume 9.5 fL (9.5-12.2); NRBC Per 100 WBC 0 /100 WBCS (0.0-0.0); Platelet Count 341 X 10*3/uL (140-440); RBC 4.55 X 10*6/uL (4.10-5.20); RDW 13.1 % (11.5-14.5); WBC 7.46 X 10*3/uL (4.50-10.00)
[2022-04-25 10:57] LABS: % Iron Saturation 13.2 (12.00-45.00); Albumin 4.8 g/dL (3.8-4.9); Anion Gap 10.7 mmol/L (10.00-18.00); BUN/Creat Ratio 32.29 Ratio (12.00-20.00); Blood Urea Nitrogen 22.6 mg/dL (9.0-27.0); Calcium 9.6 mg/dL (8.7-10.3); Carbon Dioxide 25.3 mmol/L (20.0-27.5); Globulin 2.4 g/dL (1.6-3.3); Magnesium 2.3 mg/dL (1.5-2.4); Non-African American GFR(CKD) 97.5 (60.0-200.0); Potassium 4.3 mmol/L (3.5-5.5); Total Bilirubin 0.3 mg/dL (0.30-1.20); Total Protein 7.2 g/dL (6.2-8.2)
== END ==
LOC: BARWHC3 14:51
PROVIDERS: ATTEND Surgery
DX: E66.01 Morbid (severe) obesity due to excess calories (principal); Z71.3 Dietary counseling and surveillance; Z68.28 Body mass index [BMI] 28.0-28.9, adult; D50.8 Other iron deficiency anemias; E55.9 Vitamin D deficiency, unspecified; T56.894D Toxic effect of other metals, undetermined, subsequent encounter; K90.9 Intestinal malabsorption, unspecified; Z91.048 Other nonmedicinal substance allergy status; Z91.040 Latex allergy status
CPT/HCPCS: 80053; 82306; 82607; 82728; 82746; 83540; 83550; 83735; 84255; 84425; 84443; 84590; 84630; 85027; 97803; 99211

== ENCOUNTER 2022-07-24 12:52 | Day surgery (SDC) | payer MEDICAID ==
[~2022-07-24 12:52] MED LIST changes: +LACTATED RINGERS 1,000 ML IV SCH; +LIDOCAINE 1% (10MG/ML) FOR IV START INTRADERMA PRN; -SODIUM CHLORIDE 0.9% 1,000 ML IV ONE
[2022-07-24 13:23] VITALS: RESP 16; TEMP 97.2
[2022-07-24] MEDS ORDERED: PROPOFOL 10 MG/ML 20 ML VIAL IV ONE (13:34)
--- NOTE | 2022-07-24 13:43 | P.GSHP ---
History of Present Illness H&P Date: 07/24/22 Chief Complaint: Screening colonoscopy [id number] female with presumed presents today for screening colonoscopy. Past Medical History Past Medical History: Atrial Fibrillation, Osteoarthritis (OA), Pneumonia, Sleep Apnea/CPAP/BIPAP, Syncope, Thyroid Disorder Additional Past Medical History / Comment(s): Past colon benign colon polyps, past afib/ablation successful, episode of passing out in 2020-had echo, cardiac testing-all wnl per pt, card. thinks probably vasovagal, no cpap since wt loss. History of Any Multi-Drug Resistant Organisms: None Reported Date of last positivie culture/infection: 2017 MDRO Source:: nasal swab Past Surgical History: Bariatric Surgery, Cardiac Ablation, Joint Replacement, Uterine Ablation Additional Past Surgical History / Comment(s): ablation for afib 2014. thyroid removed 11/2019. left hip replacement sx 01/2017. right hip replacement sx 07/2017. right hip replacement sx 12/2018. Sleeve gastrectomy 07-11-21, colonoscopy with polypectomy Past Anesthesia/Blood Transfusion Reactions: No Reported Reaction Additional Past Anesthesia/Blood Transfusion Reaction / Comment(s): Pt has never had a blood transfusion. Smoking Status: Never smoker - Past Family History Mother Family Medical History: No Reported History Medications and Allergies Home Medications Medication Instructions Recorded Confirmed Type Desvenlafaxine Succinate [Pristiq] 50 mg PO QAM 12/13/20 07/20/22 History Levothyroxine Sodium [Synthroid] 100 mcg PO QAM 12/13/20 07/20/22 History Calcium Citrate 500 mg PO QAM 10/31/21 07/20/22 History Multivitamins, Thera [Multivitamin 1 tab PO QAM 10/31/21 07/20/22 History (formulary)] Allergies Allergy/AdvReac Type Severity Reaction Status Date / Time adhesive tape Allergy Severe Rash/Hives Verified 07/24/22 13:12 latex Allergy Severe Rash/Hives Verified 07/24/22 13:12 steri strips Allergy Severe Rash/Hives Uncoded 07/24/22 13:12 Surgical - Exam Vital Signs Temp Pulse Resp BP Pulse Ox 97.2 F L 78 16 118/66 99 07/24/22 13:22 07/24/22 13:22 07/24/22 13:22 07/24/22 13:22 07/24/22 13:22 - General well developed, well nourished, no distress - Eyes PERRL - ENT normal pinna - Neck no masses - Respiratory normal expansion - Cardiovascular Rhythm: regular - Abdomen Abdomen: soft, non tender Assessment and Plan Assessment: We'll perform screening colonoscopy.
--- NOTE | 2022-07-24 13:55 | P.OP ---
Date of Procedure: 07/24/22 Preoperative Diagnosis: Screening colonoscopy Postoperative Diagnosis: Normal colon Procedure(s) Performed: Colonoscopy Anesthesia: MAC Surgeon: Rodrigo Loaiza Pathology: none sent Condition: stable Disposition: PACU Description of Procedure: Patient's placed on the endoscopy table in the lateral position. He received IV sedation. Digital rectal exam was performed. This revealed no abnormalities. Flexible cause scope was then placed patient anus and passed throughout the entire colon. The ileocecal valve was visualized. Cecum, ascending and transverse colon appeared normal. The descending and sigmoid colon appeared normal. Scope withdrawn for patient.
[2022-07-24 14:26] VITALS: BP 99/62; PULSE 70
== END 2022-07-24 14:40 | disposition home or self-care (01) ==
LOC: ORWHC2ENDO 12:52
PROVIDERS: ATTEND Surgery
DX: Z12.11 Encounter for screening for malignant neoplasm of colon (principal); I48.91 Unspecified atrial fibrillation; M19.90 Unspecified osteoarthritis, unspecified site; G47.33 Obstructive sleep apnea (adult) (pediatric); E07.9 Disorder of thyroid, unspecified; Z98.84 Bariatric surgery status; Z98.890 Other specified postprocedural states; Z96.641 Presence of right artificial hip joint; Z79.899 Other long term (current) drug therapy; Z79.890 Hormone replacement therapy; Z91.048 Other nonmedicinal substance allergy status; Z91.040 Latex allergy status; Z99.89 Dependence on other enabling machines and devices
CPT/HCPCS: 45378

== ENCOUNTER → 2022-07-31 | Outpatient (CLI) | payer MEDICAID ==
[2022-07-31 14:20] VITALS: BP 123/73; PULSE 80; TEMP 97.4; BMI 26.7
[2022-07-31 20:39] LABS: HCT 40.9 % (37.2-46.3); HGB 12.9 g/dL (12.0-15.0); MCH 28.2 pg (27.0-32.0); MCHC 31.5 g/dL (32.0-37.0); MCV 89.5 fL (80.0-97.0); Mean Platelet Volume 9.4 fL (9.5-12.2); NRBC Per 100 WBC 0 /100 WBCS (0.0-0.0); Platelet Count 323 X 10*3/uL (140-440); RBC 4.57 X 10*6/uL (4.10-5.20); RDW 12.7 % (11.5-14.5); WBC 7.46 X 10*3/uL (4.50-10.00)
[2022-07-31 23:06] LABS: % Iron Saturation 13.24 (12.00-45.00); African American GFR (CKD) 117.8 (60.0-200.0); Albumin 4.8 g/dL (3.8-4.9); Albumin/Globulin Ratio 2.16 (1.60-3.17); Anion Gap 15.5 mmol/L (10.00-18.00); BUN/Creat Ratio 27.51 Ratio (12.00-20.00); Calcium 9.4 mg/dL (8.7-10.3); Carbon Dioxide 23.8 mmol/L (20.0-27.5); Globulin 2.2 g/dL (1.6-3.3); Magnesium 2.3 mg/dL (1.5-2.4); Non-African American GFR(CKD) 101.6 (60.0-200.0); Potassium 3.8 mmol/L (3.5-5.5); Total Bilirubin 0.2 mg/dL (0.30-1.20); Total Protein 7.1 g/dL (6.2-8.2)
[2022-08-02 07:17] LABS: Vitamin A 75 ug/dL (38-106)
[2022-08-04 14:53] LABS: Vit B1(Thiamine) 90 ug/L (38-122)
--- NOTE | 2022-09-05 10:14 | P.HPBAR ---
Bariatric H&P - History & Physicial H&P Date: 07/31/22 History & Physicial: Visit/CC: 1 year sleeve F/U Patient initial contact: Initial weight: 120.344 kg Initial weight in pounds: 265.31 Height: 5 ft 8 in Initial BMI: 40.3 Last weight: Current weight: 79.832 kg Current weight in pounds: 176.00 Current BMI: 26.7 [place] body weight (based on NIH guidelines): 63.503 kg Excess body weight loss: 71.2% The patient is a 57 year-old F who presents for Bariatric Assessment. Patient resents today for sleeve gastrectomy follow-up. She's loss another 5 pounds. She's had some minimal GERD. Past Medical History Past Medical History: Atrial Fibrillation, Osteoarthritis (OA), Pneumonia, Sleep Apnea/CPAP/BIPAP, Syncope, Thyroid Disorder Additional Past Medical History / Comment(s): Past colon benign colon polyps, past afib/ablation successful, episode of passing out in 2020-had echo, cardiac testing-all wnl per pt, card. thinks probably vasovagal, no cpap since wt loss. History of Any Multi-Drug Resistant Organisms: None Reported Year Discovered:: 2018 MDRO Source:: nasal swab Past Surgical History: Bariatric Surgery, Cardiac Ablation, Joint Replacement, Uterine Ablation Additional Past Surgical History / Comment(s): ablation for afib 2014. thyroid removed 11/2019. left hip replacement sx 01/2017. right hip replacement sx 07/2017. right hip replacement sx 12/2018. Sleeve gastrectomy 07-11-21, colonoscopy with polypectomy Past Anesthesia/Blood Transfusion Reactions: No Reported Reaction Additional Past Anesthesia/Blood Transfusion Reaction / Comm: Pt has never had a blood transfusion. Past Psychological History: Depression Additional Psychological History / Comment(s): Resides with spouse. Smoking Status: Never smoker Past Alcohol Use History: None Reported Past Drug Use History: None Reported - Past Family History Mother Family Medical History: No Reported History Surgical - Exam Vital Signs Temp Pulse BP 97.4 F L 80 123/73 07/31/22 14:13 07/31/22 14:13 07/31/22 14:13 - General well developed, well nourished, no distress - Eyes PERRL - ENT normal pinna - Neck no masses - Respiratory normal expansion - Cardiovascular Rhythm: regular - Abdomen Abdomen: soft, non tender Results - Labs 07/31/22 15:31 07/31/22 15:31 Bariatric Assessment & Plan Plan: Status post sleeve gastrectomy. Patient is an excellent weight loss. Her BMI is 27. Her GERD is minimal and will be observed. She'll follow-up in 4 weeks. Bariatric Checklist Checklist: Plan: Checklist: EGD: 1. Hiatal hernia: 2. H. Pylori: HgbA1c: Vitamin D: Smoking: Primary care physician referral: TADEO SAMPSON Psychiatry clearance: Cardiology clearance: Sleep study: Diet journal: VTE risk score: VTE risk level: Rehab needs at discharge:
== END ==
LOC: BARWHC3 14:06
PROVIDERS: ATTEND Surgery
DX: E66.01 Morbid (severe) obesity due to excess calories (principal); D50.8 Other iron deficiency anemias; E44.0 Moderate protein-calorie malnutrition; E55.9 Vitamin D deficiency, unspecified; T56.894A Toxic effect of other metals, undetermined, initial encounter; Z71.3 Dietary counseling and surveillance; I48.0 Paroxysmal atrial fibrillation; M19.90 Unspecified osteoarthritis, unspecified site; Z99.89 Dependence on other enabling machines and devices; Z98.84 Bariatric surgery status; K21.9 Gastro-esophageal reflux disease without esophagitis; Z68.26 Body mass index [BMI] 26.0-26.9, adult; Z91.048 Other nonmedicinal substance allergy status; Z91.040 Latex allergy status; Z88.8 Allergy status to other drugs, medicaments and biological substances; Z79.890 Hormone replacement therapy
CPT/HCPCS: 80053; 82306; 82607; 82728; 82746; 83540; 83550; 83735; 84425; 84443; 84590; 85027; 97803; 99211

== ENCOUNTER → 2023-03-12 | Outpatient (CLI) | payer MEDICAID ==
[2023-03-12 10:14] VITALS: BP 116/72; PULSE 74; TEMP 97.4; BMI 27.6
--- NOTE | 2023-03-12 12:30 | P.HPBAR ---
Bariatric H&P - History & Physicial H&P Date: 03/12/23 History & Physicial: Visit/CC: sleeve F/U Patient initial contact: Initial weight: 120.344 kg Initial weight in pounds: 265.31 Height: 5 ft 7.5 in Initial BMI: 40.9 Last weight: Current weight: 81.193 kg Current weight in pounds: 179.00 Current BMI: 27.6 [place] body weight (based on NIH guidelines): 62.369 kg Excess body weight loss: 67.5% The patient is a 58 year-old F who presents for Bariatric Assessment. Patient presents today for bariatric follow-up. She is gained 3 pounds her last visit. She's had some mild GERD. Past Medical History Past Medical History: Atrial Fibrillation, Osteoarthritis (OA), Pneumonia, Sleep Apnea/CPAP/BIPAP, Syncope, Thyroid Disorder Additional Past Medical History / Comment(s): Past colon benign colon polyps, past afib/ablation successful, episode of passing out in 2020-had echo, cardiac testing-all wnl per pt, card. thinks probably vasovagal, no cpap since wt loss. History of Any Multi-Drug Resistant Organisms: None Reported Year Discovered:: 2018 MDRO Source:: nasal swab Past Surgical History: Bariatric Surgery, Cardiac Ablation, Joint Replacement, Uterine Ablation Additional Past Surgical History / Comment(s): ablation for afib 2014. thyroid removed 11/2019. left hip replacement sx 01/2017. right hip replacement sx 07/2017. right hip replacement sx 12/2018. Sleeve gastrectomy 07-11-21, colonoscopy with polypectomy Past Anesthesia/Blood Transfusion Reactions: No Reported Reaction Additional Past Anesthesia/Blood Transfusion Reaction / Comm: Pt has never had a blood transfusion. Past Psychological History: Depression Additional Psychological History / Comment(s): Resides with spouse. Smoking Status: Never smoker Past Alcohol Use History: None Reported Past Drug Use History: None Reported - Past Family History Mother Family Medical History: No Reported History Surgical - Exam Vital Signs Temp Pulse BP 97.4 F L 74 116/72 03/12/23 10:10 03/12/23 10:10 03/12/23 10:10 - General well developed, well nourished, no distress - Eyes PERRL - ENT normal pinna - Neck no masses - Cardiovascular Rhythm: regular - Abdomen Abdomen: soft, non tender Bariatric Assessment & Plan Plan: Status post sleeve history.. Patient's GERD is minimal and will be observed. Bariatric Checklist Checklist: Plan: Checklist: EGD: 1. Hiatal hernia: 2. H. Pylori: HgbA1c: Vitamin D: Smoking: Primary care physician referral: TADEO SAMPSON Psychiatry clearance: Cardiology clearance: Sleep study: Diet journal: VTE risk score: VTE risk level: Rehab needs at discharge:
== END ==
LOC: BARWHC3 09:39
PROVIDERS: ATTEND Surgery
DX: D12.6 Benign neoplasm of colon, unspecified (principal); K21.9 Gastro-esophageal reflux disease without esophagitis; I48.91 Unspecified atrial fibrillation; M19.90 Unspecified osteoarthritis, unspecified site; J18.9 Pneumonia, unspecified organism; G47.30 Sleep apnea, unspecified; F32.A Depression, unspecified; R55 Syncope and collapse; E03.9 Hypothyroidism, unspecified; Z98.84 Bariatric surgery status; Z96.60 Presence of unspecified orthopedic joint implant; Z98.890 Other specified postprocedural states; Z87.42 Personal history of other diseases of the female genital tract; Z96.643 Presence of artificial hip joint, bilateral; Z99.89 Dependence on other enabling machines and devices; Z91.018 Allergy to other foods; Z91.040 Latex allergy status; Z91.041 Radiographic dye allergy status; Z79.890 Hormone replacement therapy
CPT/HCPCS: 99211